=== PATIENT | female | born 2000 ===

== ENCOUNTER 2019-03-23 05:39 | Emergency (ER) | payer SELFPAY ==
[2019-03-23 06:17] LABS: Urine Blood NEGATIVE (NEG); Urine Glucose NEGATIVE (NEG); Urine Protein NEGATIVE (NEG); Urine Specific Gravity >1.030 (1.005-1.030); Urine pH 5.5 (5.0-7.0)
[2019-03-23] MEDS ORDERED: ONDANSETRON 4 MG/2 ML VIAL ONE (06:22)
[2019-03-23] MEDS ORDERED: NA CHLORIDE 0.9% 1,000 ML ONE (06:22)
[2019-03-23 06:38] LABS: Absolute Lymphocytes (CBC) 2.4 K/uL (0.7-4.9); Basophils % 0.9 % (0-1.3); Hematocrit 40.1 % (36.0-45.0); Lymphocytes % 34.2 % (15.3-44.8); MPV 8.9 fL (7.6-11.3); RBC Red Blood Cell Count 5.16 M/uL (3.86-4.86)
[2019-03-23 06:56] LABS: Albumin 4.4 g/dL (3.4-5.0); Bilirubin Direct 0.1 mg/dL (0-0.2); Bilirubin Total 0.3 mg/dL (0.2-1.0); Potassium 3.6 mmol/L (3.5-5.1); Protein, Total 8.6 g/dL (6.4-8.2)
--- NOTE | 2019-03-23 07:31 | ER ---
Nurse's Notes [facility] Name: Katey Barfield Age: 18 yrs Sex: Female : 2000 Arrival Date: 03/23/2019 Time: 05:43 Bed 7 Private MD: Diagnosis: Epigastric pain Presentation: 03/23 05:50 Presenting complaint: Patient states: I have had abdominal pain for the last 3 days and tl1 this morning I vomited. Transition of care: patient was not received from another setting of care. Onset of symptoms was March 20, 2019. Risk Assessment: Do you want to hurt yourself or someone else? Patient reports no desire to harm self or others. Initial Sepsis Screen: Does the patient meet any 2 criteria? No. Patient's initial sepsis screen is negative. Does the patient have a suspected source of infection? No. Patient's initial sepsis screen is negative. Care prior to arrival: None. 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 - Social history:: Smoking status: Patient/guardian denies using tobacco, never smoked, Patient/guardian denies using alcohol, street drugs. - Ebola Screening: : Patient negative for fever greater than or equal to 101.5 degrees Fahrenheit, and additional compatible Ebola Virus Disease symptoms Patient denies exposure to infectious person Patient denies travel to an Ebola-affected area in the 21 days before illness onset. Screenin:53 Abuse screen: Denies threats or abuse. Denies injuries from another. Nutritional tl1 screening: No deficits noted. Tuberculosis screening: No symptoms or risk factors identified. Fall Risk IV access (20 points). Assessment: 05:53 General: Appears in no apparent distress. Behavior is calm, cooperative, appropriate tl1 for age. Pain: Complains of pain in abdomen Pain currently is 7 out of 10 on a pain scale. Quality of pain is described as aching, crampy. Neuro: Level of Consciousness is awake, alert, obeys commands, Oriented to person, place, time, situation. Cardiovascular: Denies chest pain. Respiratory: Airway is patent Trachea midline Respiratory effort is even, unlabored, Breath sounds are clear bilaterally. GI: Abdomen is non-distended, Bowel sounds present X 4 quads. Abd is soft Abdomen is tender to palpation X 4 quads. Reports lower abdominal pain, upper abdominal pain, intolerance of food, nausea, vomiting. : No signs and/or symptoms were reported regarding the genitourinary system. EENT: No signs and/or symptoms were reported regarding the EENT system. Derm: No signs and/or symptoms reported regarding the dermatologic system. Musculoskeletal: No signs and/or symptoms reported regarding the musculoskeletal system. Vital Signs: 05:52 BP 129 / 90; Pulse 62; Resp 16; Temp 98.3(O); Pulse Ox 98% ; Weight 53.52 kg; Height 5 tl1 ft. 2 in. (157.48 cm); Pain 7/10; 06:48 BP 113 / 73; Pulse 56; Resp 16; Pulse Ox 100% on R/A; tl1 05:52 Body Mass Index 21.58 (53.52 kg, 157.48 cm) tl1 ED Course: 05:43 Patient arrived in ED. ag3 05:50 Nery Araujo, GAIL is Primary Nurse. tl1 05:51 Triage completed. tl1 05:53 Arm band placed on right wrist. tl1 06:07 No provider procedures requiring assistance completed. Inserted saline lock: 22 gauge tl1 in right in left Blood collected. 06:08 Kun Dawn PA is PHCP. [facility] 06:08 Rosendo Nathan MD is Attending Physician. jmm 07:05 Patient has correct armband on for positive identification. Bed in low position. Call sg light in reach. Side rails up X2. Pulse ox on. NIBP on. Warm blanket given. Head of bed elevated. 07:19 US Abdomen Limited In Process Unspecified. EDMS 07:22 Primary Nurse role handed off by Nery Araujo, RN sg 07:22 Max Schroeder, RN is Primary Nurse. sg 07:30 Sha Arias MD is Referral Physician. jmm 07:38 Diet: Patient given water. sg 07:41 Diet: Patient given water. Tolerated well. sg 07:41 IV discontinued, intact, bleeding controlled, No redness/swelling at site. Pressure sg dressing applied. Administered Medications: 06:26 Drug: NS 0.9% 1000 ml Route: IV; Rate: 1 bolus; Site: right antecubital; tl1 06:26 Drug: Zofran 4 mg Route: IVP; Site: right antecubital; tl1 Outcome: 07:31 Discharge ordered by . brenton 07:42 Discharged to home ambulatory, with family. sg 07:42 Condition: good 07:42 Discharge instructions given to patient, Instructed on discharge instructions, follow up and referral plans. medication usage, safety practices, Demonstrated understanding of instructions, follow-up care, medications, Prescriptions given X 2. 07:46 Patient left the ED. sg Signatures: Dispatcher [employer] EDMS Max Schroeder, RN RN sg Kun Dawn PA PA jmm Lasagna, Tonya RN RN tl1 Peggy Price 3
--- NOTE | 2019-03-23 07:31 | EDPHYS ---
Physician Documentation [facility] Name: Katey Barfield Age: 18 yrs Sex: Female : 2000 Arrival Date: 03/23/2019 Time: 05:43 Bed 7 Private MD: ED Physician Rosendo Nathan HPI: 03/23 06:19 This 18 yrs old Female presents to ER via Ambulatory with complaints of Abdominal Pain. jmm 06:19 The patient presents with abdominal pain in the epigastric area. Onset: The jmm symptoms/episode began/occurred gradually, 4 day(s) ago. The symptoms do not radiate. Associated signs and symptoms: Pertinent positives: nausea and vomiting, Pertinent negatives: chest pain, diarrhea. The symptoms are described as achy. Modifying factors: The symptoms are alleviated by nothing, the symptoms are aggravated by nothing. This is a 18 year old female with no chronic medical conditions that presents to the ED with complaints of abdominal pain beginning this past Wednesday. Denies diarrhea. Developed nausea and vomiting this morning. Denies previous surgical history. . 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 - Social history:: Smoking status: Patient/guardian denies using tobacco, never smoked, Patient/guardian denies using alcohol, street drugs. - Ebola Screening: : Patient negative for fever greater than or equal to 101.5 degrees Fahrenheit, and additional compatible Ebola Virus Disease symptoms Patient denies exposure to infectious person Patient denies travel to an Ebola-affected area in the 21 days before illness onset. ROS: 06:19 Constitutional: Negative for fever, chills, and weight loss, Cardiovascular: Negative jmm for chest pain, palpitations, and edema, Respiratory: Negative for shortness of breath, cough, wheezing, and pleuritic chest pain. 06:19 Abdomen/GI: Positive for abdominal pain, nausea and vomiting. 06:19 All other systems are negative. Exam: 06:19 Constitutional: This is a well developed, well nourished patient who is awake, alert, jmm and in no acute distress. Head/Face: atraumatic. Eyes: EOMI, no conjunctival erythema appreciated ENT: Moist Mucus Membranes Neck: Trachea midline, Supple Chest/axilla: Normal chest wall appearance and motion. Cardiovascular: Regular rate and rhythm. No edema appreciated Respiratory: Normal respirations, no respiratory distress appreciated 06:19 Abdomen/GI: Inspection: abdomen appears normal, Bowel sounds: normal, Palpation: soft, mild abdominal tenderness, in the right upper quadrant. 06:19 Musculoskeletal/extremity: ROM: intact in all extremities. 06:19 Skin: Appearance: Color: normal in color. 06:19 Neuro: Orientation: is normal, Mentation: is normal, Memory: is normal. 06:19 Psych: Behavior/mood is pleasant, cooperative. Vital Signs: 05:52 BP 129 / 90; Pulse 62; Resp 16; Temp 98.3(O); Pulse Ox 98% ; Weight 53.52 kg; Height 5 tl1 ft. 2 in. (157.48 cm); Pain 7/10; 06:48 BP 113 / 73; Pulse 56; Resp 16; Pulse Ox 100% on R/A; tl1 05:52 Body Mass Index 21.58 (53.52 kg, 157.48 cm) tl1 MDM: 06:18 Patient medically screened. [facility] 07:27 Data reviewed: vital signs, nurses notes. Counseling: I had a detailed discussion with brenton the patient and/or guardian regarding: the historical points, exam findings, and any diagnostic results supporting the discharge/admit diagnosis, lab results, radiology results, the need for outpatient follow up, to return to the emergency department if symptoms worsen or persist or if there are any questions or concerns that arise at home. ED course: Patient is alert and non toxic in appearance in the ED. Tolerates PO. US is negative. Patient has no peritoneal signs on PE. Patient given early appendicitis return precautions. Patient understood and agrees with the plan of care. . 03/23 06:04 Order name: Urine Dipstick--Ancillary (enter results); Complete Time: 06:48 ag4 08 06:04 Order name: Urine --Ancillary (enter results); Complete Time: 06:48 4 03/23 06:18 Order name: Basic Metabolic Panel; Complete Time: 06:58 [facility] 03/23 06:18 Order name: CBC with Diff; Complete Time: 06:48 [facility] 03/23 06:18 Order name: Creatinine for Radiology; Complete Time: 06:55 [facility] 03/23 06:18 Order name: Hepatic Function; Complete Time: 06:58 [facility] 03/23 06:18 Order name: US Abdomen Limited [facility] 03/23 06:18 Order name: Lipase; Complete Time: 06:58 [facility] 03/23 06:18 Order name: IV Saline Lock; Complete Time: 06:19 [facility] 03/23 06:18 Order name: Labs collected and sent; Complete Time: 06:19 [facility] 03/23 07:11 Order name: PO challenge; Complete Time: 07:41 [facility] Administered Medications: 06:26 Drug: NS 0.9% 1000 ml Route: IV; Rate: 1 bolus; Site: right antecubital; tl1 06:26 Drug: Zofran 4 mg Route: IVP; Site: right antecubital; tl1 Disposition: 03/23/19 07:31 Discharged to Home. Impression: Epigastric pain. - Condition is Stable. - Discharge Instructions: Abdominal Pain, Adult. - Prescriptions for Zofran ODT 4 mg Oral tablet,disintegrating - place 1 tablet by TRANSLINGUAL route every 4-6 hours; 20 tablet. Pepcid 20 mg Oral Tablet - take 1 tablet by ORAL route once daily; 20 tablet. - Work release form, Medication Reconciliation Form, Thank You Letter, Antibiotic Education, Prescription Opioid Use form. - Follow up: Sha Arias MD; When: 2 - 3 days; Reason: Recheck today's complaints, Continuance of care, Re-evaluation by your physician. Addendum: 03/27/2019 07:00 Co-signature as Attending Physician, Rosendo Nathan MD. r n Signatures: Dispatcher [employer] EDMax Aleman RN RN Kun Ty PA PA jmm Nieto, Roman, MD MD rn Lasagna, Tonya, RN RN tl1 Corrections: (The following items were deleted from the chart) 03/23 07:46 07:31 03/23/2019 07:31 Discharged to Home. Impression: Epigastric pain. Condition is sg Stable. Forms are Medication Reconciliation Form, Thank You Letter, Antibiotic Education, Prescription Opioid Use. Follow up: Sha Arias; When: 2 - 3 days; Reason: Recheck today's complaints, Continuance of care, Re-evaluation by your physician. brenton
--- NOTE | 2019-03-23 10:28 | RAD REPORT ---
EXAM DESCRIPTION: US - Abdomen Exam Limited - 03/23/2019 7:19 am CLINICAL HISTORY: Abdominal pain. COMPARISON: None. FINDINGS: The gallbladder wall is not thickened. A gallstone is not seen. The biliary tree is normal caliber. IMPRESSION: Unremarkable gallbladder ultrasound.
== END 2019-03-23 07:46 | disposition home or self-care (01) ==
LOC: ER 05:39
DX: R10.13 Epigastric pain (principal)
CPT/HCPCS: 36415; 76705; 80048; 80076; 81003; 81025; 83690; 85025; 96374; 99284; J2405; J7030